=== PATIENT | male | born 2005 | race Caucasian/White ===

== ENCOUNTER 2025-05-15 20:02 | Emergency (ER) | payer BC ==
[2025-05-15] MEDS: Diphtheria,Pertussis(Acell),Tetanus Vaccine 0.5 ML Syringe IM ONE (22:11)
== END 2025-05-15 22:31 | disposition home or self-care (01) ==
LOC: JP.ED 20:02
DX: S91.312A Laceration without foreign body, left foot, initial encounter (principal); Z23 Encounter for immunization; Z79.899 Other long term (current) drug therapy; W22.8XXA Striking against or struck by other objects, initial encounter; Y93.89 Activity, other specified
CPT/HCPCS: 12001; 90471; 90715; 99283; 99283-25